=== PATIENT | male | born 1995 ===

== ENCOUNTER 2018-07-23 02:39 | Emergency (ER) | payer SELFPAY ==
[2018-07-23] MEDS ORDERED: Metoclopramide IV* 5 MG/ML 2 ML VIAL IV SLOW PU ONE (02:55)
[2018-07-23] MEDS ORDERED: Metoclopramide IV* 5 MG/ML 2 ML VIAL ONE (02:55)
[2018-07-23] MEDS ORDERED: NS 0.9% 1000 ML** 1,000 ML IV ONE (02:55)
--- NOTE | 2018-07-23 03:03 | ED ---
Substance Abuse/Use - HPI Summary HPI Summary: This patient is a 23 year old male brought in by ambulance to [facility] with a chief complaint of alcohol intoxication since several hours ago. Patients friend stated that he drank 5 rum and cokes and vomited. Patients friend called EMS. Patient has slurred speech, is drowsy, but arousable to voice. The pain is rated 0/10 in severity. Symptoms aggravated by nothing. Symptoms alleviated by nothing. HPI Limited due to Level 5 Caveat: Alcohol intoxication, AMS - History Of Current Complaint Chief Complaint: EDSubstanceAbuse Stated Complaint: ETOH Time Seen by Provider: 07/23/18 02:45 Hx Obtained From: Patient Hx From Patient Unobtainable Due To: Altered Mental Status Onset/Duration of Drug/ETOH Abuse: Hours Ingestion History: Type/Name Of Drug - EtOH Overdose Characteristics: Oral Timing Of Abuse: Binge Use Severity Currently: Moderate Character: Lethargic, Stuporous Aggravating Factor(s): Nothing Alleviating Factor(s): Nothing Associated Signs And Symptoms: Vomiting - Allergies/Home Medications Home Medications: Home Medications Unobtainable 07/23/18 [History Confirmed 07/23/18] PMH/Surg Hx/FS Hx/Imm Hx Previously Healthy: Yes - PMHx Limited due to Level 5 Caveat: AMS, Alcohol intoxication Opthamlomology History: Denies: Hx Legally Blind EENT History: Denies: Hx Deafness Infectious Disease History: No Infectious Disease History: Denies: Traveled Outside the [place] in Last 30 Days - Family History Family History: FHx Limited due to Level 5 Caveat: AMS, Alcohol Intoxication - Social History Alcohol Use: Weekly Hx Substance Use: No Substance Use Type: Reports: None Smoking Status (MU): Unknown if Ever Smoked Review of Systems Negative: Fever Positive: Vomiting Positive: Other - alcohol intoxication All Other Systems Reviewed And Are Negative: No - Comments Additional Review of Systems Comments: ROS Limited by Level 5 Caveat: AMS, Alcohol intoxication Physical Exam - Summary Physical Exam Summary: VITAL SIGNS: Reviewed. GENERAL: Patient is a well-developed and nourished male who is lying comfortable in the stretcher. Patient is not in any acute respiratory distress. HEAD AND FACE: No signs of trauma. No ecchymosis, hematomas or skull depressions. No sinus tenderness. EYES: PERRLA, EOMI x 2, No injected conjunctiva, no nystagmus. EARS: Hearing grossly intact. Ear canals and tympanic membranes are within normal limits. LUNGS: Clear to auscultation bilaterally. No wheezing or crackles. CVS: Regular rate and rhythm, S1 and S2 present, no murmurs or gallops appreciated. ABDOMEN: Soft, non-tender. No signs of distention. No rebound no guarding, and no masses palpated. Bowel sounds are normal. NEURO: Alert and oriented x 3. No acute neurological deficits. PSYCH: Patient is arousable by voice and can tell us his name. SKIN: Dry and warm Triage Information Reviewed: Yes Vital Signs On Initial Exam: Initial Vitals Temp Pulse Resp BP Pulse Ox 96.6 F 77 16 103/57 100 07/23/18 02:43 07/23/18 02:43 07/23/18 02:43 07/23/18 02:43 07/23/18 02:43 Vital Signs Reviewed: Yes Completion Of Physical Exam Limited Due To: Altered Mental Status, Level 5 Diagnostics - Vital Signs Vital Signs Temp Pulse Resp BP Pulse Ox 07/23/18 02:43 96.6 F 77 16 103/57 100 - Laboratory Lab Statement: Any lab studies that have been ordered have been reviewed, and results considered in the medical decision making process. Course/Dx - Course Course Of Treatment: This patient is a 23 year old male brought in by ambulance to [facility] with a chief complaint of alcohol intoxication since several hours ago. Patients friend stated that he drank 5 rum and cokes and vomited. In the ED course the patient was given NS 0.9% bolus IV, Reglan. Patient will be discharged with a dx of alcohol intoxication. Patient is advised to follow up with PCP in 3 days. The patient is agreeable with this plan. - Diagnoses Provider Diagnoses: Alcohol intoxication Discharge - Sign-Out/Discharge Documenting (check all that apply): Patient Departure - Discharge Plan Condition: Stable Disposition: HOME Patient Education Materials: Alcohol Intoxication (ED), Abuse of Alcohol (ED) Additional Instructions: Return to the ED for any new or worsening symptoms. - Attestation Statements Document Initiated by Scribe: Yes Documenting Scribe: Lata Ford Provider For Whom Scribe is Documenting (Include Credential): Sammi Le MD Scribe Attestation: Lata Stephen scribed for Sammi Le MD on 07/23/18 at 0541. Status of Scribe Document: Ready
== END 2018-07-23 05:49 | disposition home or self-care (01) ==
LOC: EDBD → ED 02:39 → MERGE 02:39 → ED 05:49
DX: F10.129 Alcohol abuse with intoxication, unspecified (principal)
CPT/HCPCS: 96374; 99283; J2765